=== PATIENT | female | born 1945 ===

== ENCOUNTER 2021-11-06 05:50 | Day surgery (SDC) | payer OTHER ==
[~2021-11-06] VITALS: Ht 160 cm; Wt 82.6 kg
[~2021-11-06 05:50] MED LIST: ADULT LOW DOSE81 M1 PO; IRBESARTAN75 MG PO; LIPITOR80 MG PO; [UNRECOGNIZED DRUG - OTHER] PO
== END 2021-11-06 15:15 | disposition home or self-care (01) ==
LOC: CIR.AMB 05:50
PROVIDERS: ATTEND Obstetrics & Gynecology
DX: N84.0 Polyp of corpus uteri (principal); Z20.822 Contact with and (suspected) exposure to COVID-19; I10 Essential (primary) hypertension